=== PATIENT | male | born 1980 | race Asian ===

== ENCOUNTER 2017-06-17 01:04 | Emergency (ER) | payer MEDICAID ==
[~2017-06-17] VITALS: Ht 175.3 cm; Wt 86.2 kg
[2017-06-17 01:25] VITALS: BP 156/89
[2017-06-17] MEDS ORDERED: Tetanus/Diptheria/Pertussis Vaccine 0.5ml Syr IM ONE (03:45)
[2017-06-17] MEDS ORDERED: Tylenol #3 tab (300mg/30mg) ORAL ONE (03:45)
[2017-06-17] MEDS ORDERED: KEFLEX500 MG ORAL (04:34)
[2017-06-17] MEDS ORDERED: IBUPROFEN600 MG ORAL (04:34)
[2017-06-17 04:50] VITALS: BP 156/89
--- NOTE | 2017-06-17 05:11 | Emergency Room Report ---
History of Present Illness General Chief Complaint: Laceration Source: Patient Present Illness HPI 36-year-old male brought in with laceration to left anterior worrell that occurred 4 days prior when he actually hit it on a quentin when helping friends move boxes. Patient's friend washed with water and peroxide and has been putting Neosporin on it. Not taking any additional dkeg-rby-pbermut meds And pain to area particularly with ambulation Allergies: Coded Allergies: No Known Allergies (Unverified , 06/17/17) Patient History Past Medical History: none Past Surgical History: none Pertinent Family History: none Social History: Denies: smoking, alcohol use, drug use Immunizations: UTD Reviewed Nursing Documentation: PMH: Agreed, PSxH: Agreed Nursing Documentation-PMH Past Medical History: No Stated History Review of Systems All Other Systems: negative except mentioned in HPI Physical Exam Vital Signs Date Time Temp Pulse Resp B/P (MAP) Pulse Ox O2 Delivery O2 Flow Rate FiO2 06/17/17 01:16 98.8 109 18 156/89 99 98.8 Sp02 EP Interpretation: reviewed, normal General Appearance: normal inspection, well appearing, no apparent distress, alert, GCS 15, non-toxic Head: normocephalic, atraumatic Eyes: bilateral eye PERRL, bilateral eye EOMI ENT: normal ENT inspection, hearing grossly normal, normal pharynx, no angioedema, normal voice, TMs + canals normal, uvula midline, moist mucus membranes Neck: normal inspection, full range of motion, supple, thyroid normal, no meningismus, no bony tend Respiratory: normal inspection, lungs clear, normal breath sounds, no rhonchi, no respiratory distress, no retraction, no accessory muscle use, no wheezing, speaking full sentences Cardiovascular #1: regular rate, rhythm, no edema, no JVD, normal capillary refill Gastrointestinal: normal inspection, normal bowel sounds, non tender, soft, no mass, no peritonitis, non-distended, no guarding, no hernia, no pulsatile mass Genitourinary: no CVA tenderness Musculoskeletal: normal inspection, back normal, normal range of motion, no calf tenderness, pelvis stable, Sonny's Sign negative, other - Left worrell: 3cm linear abrasion. Mild ttp to soft tissue swelling around abrasion. No ertyhema or pus drainage. 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, motor strength/tone normal, cerebellar normal, normal gait, speech normal Psychiatric: normal inspection, judgement/insight normal, mood/affect normal, no suicidal/homicidal ideation, no delusions Skin: normal inspection, normal color, no rash Lymphatic: normal inspection, no adenopathy Medical Decision Making Diagnostic Impression: Primary Impression: Laceration ER Course VSS, afebrile Tetanus updated Xray of left tib-fib negative for fx on ED review Will need Rx for Abx given concern for soft tissue infection with swelling, pain 4 days after injury Rx Keflex ER course: Patient has remained stable during ED stay. Disposition: Patient is to be discharged to home. Prescriptions given are keflex Patient is instructed to follow up with their primary care doctor within 5 days. Strict return precautions discussed with patient such as fever, chills, worsening/severe pain, nausea, vomiting, which may indicate severe illness. Patient verbalizes understanding and agrees with plan. Please note that this Emergency Department Report was dictated using [employer] pull[employer] technology software, occasionally this can lead to erroneous entry secondary to interpretation by the dictation equipment Other X-Ray Diagnostic Results Other X-Ray Diagnostic Results : X-Ray ordered: left tib fib # of Views/Limited Vs Complete: 2 View Indication: Pain EP Interpretation: Yes Interpretation: no dislocation, no soft tissue swelling, no fractures Impression: No acute disease Electronically Signed by: Dr Mellisa Palacios MD Last Vital Signs Date Time Temp Pulse Resp B/P (MAP) Pulse Ox O2 Delivery O2 Flow Rate FiO2 06/17/17 04:07 98.8 06/17/17 01:16 109 18 156/89 99 Status: improved Disposition: HOME, SELF-CARE Condition: Improved Scripts Ibuprofen* (MOTRIN*) 600 Mg Tablet 600 MG ORAL THREE TIMES A DAY for For Pain for 7 Days, #30 TAB 0 Refills Prov: MELLISA PALACIOS M.D. 06/17/17 Cephalexin* (KEFLEX*) 500 Mg Capsule 500 MG ORAL Q6H for 7 Days, #28 CAP 0 Refills Prov: MELLISA PALACIOS M.D. 06/17/17 Referrals: [facility],REFERRING (PCP) Patient Instructions: Nonsutured Laceration Care MELLISA PALACIOS M.D. Jun 17, 2017 05:11
--- NOTE | 2017-06-17 11:25 | Diagnostic Imaging Report ---
Indication: Pain Comparison: None Findings: Two views of the left tibia and fibula were obtained. No acute fracture, malalignment, or periosteal reaction are identified. Soft tissues are unremarkable. Impression: No acute injury.
== END 2017-06-17 04:50 | disposition home or self-care (01) ==
LOC: EMR 02:00
DX: S81.812A Laceration without foreign body, left lower leg, initial encounter (principal); Z23 Encounter for immunization; W22.8XXA Striking against or struck by other objects, initial encounter; Y92.9 Unspecified place or not applicable
CPT/HCPCS: 90471; 90715; 99284